=== PATIENT | male | born 1985 | race African-American/Black ===

== ENCOUNTER 2021-02-21 10:49 | Emergency (ER) | payer MEDICAID ==
[~2021-02-21] VITALS: Ht 170.2 cm; Wt 79.4 kg
[2021-02-21 10:50] VITALS: BP 145/71
--- NOTE | 2021-02-21 10:56 | NUR ---
Pt ambulated to ER bed 3 with a steady gait.
--- NOTE | 2021-02-21 10:58 | NUR ---
Dr. Arguello at pt bedside for further evaluation.
[2021-02-21] MEDS ORDERED: predniSONE 20 MG TAB PO ONE (11:00)
[2021-02-21] MEDS ORDERED: ALBUTEROL 0.083% 2.5 MG/3 ML NEBU INH ONE (11:00)
--- NOTE | 2021-02-21 11:01 | NUR ---
35 Y/O MALE BIB FAMILY C/O SOB AND LEFT UPPER BACK PAIN 4/10 DESCRIBES INTERMITTENT AND SHARP X 1DAY. PT STATES HE HAD SOME WHEEZING DURING THE NIGHT AND UNABLE TO SLEEP. LUNGS ARE SYMMETRICAL, EVEN, SOME LABORING NOTED BUT CLEAR THROUGHOUT WHEN AUSCULTATED.PT DENIES N/V, DENIES FEVER/CHILLS. PMH: BRONCHITIS NKA
--- NOTE | 2021-02-21 11:24 | NUR ---
photonics engineering technician at pt bedside.
--- NOTE | 2021-02-21 11:27 | NUR ---
RT at pt bedside for breathing treatment.
--- NOTE | 2021-02-21 12:08 | NUR ---
Collected KEN POLK, walked to lab.
[2021-02-21] MEDS ORDERED: PRED20TA6 PO (12:12)
[2021-02-21] MEDS ORDERED: ALBU0.0912 IH (12:12)
[2021-02-21 12:19] VITALS: BP 145/71
--- NOTE | 2021-02-21 12:20 | NUR ---
Patient discharged with v/s stable. Written and verbal after care instructions given and explained. Patient alert, oriented and verbalized understanding of instructions. Ambulatory with steady gait. All questions addressed prior to discharge. ID band removed. Patient advised to follow up with PMD. Rx of prednisone and albuterol given. Patient educated on indication of medication including possible reaction and side effects. Opportunity to ask questions provided and answered.
== END 2021-02-21 12:20 | disposition home or self-care (01) ==
LOC: MED 10:49
DX: J20.9 Acute bronchitis, unspecified (principal); Z20.822 Contact with and (suspected) exposure to COVID-19
CPT/HCPCS: 71045; 93005; 94640; 99285; J7512; J7613; U0003

== ENCOUNTER 2021-06-21 08:23 | Emergency (ER) | payer MEDICAID ==
[~2021-06-21] VITALS: Ht 172.7 cm; Wt 81.6 kg
[~2021-06-21 08:23] MED LIST: ALBU0.0912 IH; PRED20TA6 PO
[2021-06-21 08:24] VITALS: BP 116/81
--- NOTE | 2021-06-21 08:30 | NUR ---
TENT 4
--- NOTE | 2021-06-21 08:34 | NUR ---
BIB FAMILY C/O SOB, COUGH, RUNNY NOSE, 7/10 RIGHT RIBS, RIGHT UPPER BACK PAIN X 1WEEK. PMH: BRONCHITIS
[2021-06-21] MEDS ORDERED: ALBUTEROL HFA MDI 90 MCG/ACTUATION 8 GM INH ONE (09:10)
--- NOTE | 2021-06-21 10:26 | NUR ---
CIVD RAPID & PCR SWAB DONE.
[2021-06-21] MEDS ORDERED: IBUP-2213 PO (10:34)
[2021-06-21] MEDS ORDERED: ACET-8386 PO (10:34)
[2021-06-21] MEDS ORDERED: PRED20TA5 PO (10:34)
[2021-06-21] MEDS ORDERED: ALBU0.0912 IH (10:34)
--- NOTE | 2021-06-21 10:45 | NUR ---
PT STATED HE GOT BREATHING TREATMENT.
[2021-06-21 10:51] VITALS: BP 116/81
--- NOTE | 2021-06-21 10:51 | NUR ---
Patient discharged with v/s stable. Written and verbal after care instructions given and explained. Patient alert, oriented and verbalized understanding of instructions. Ambulatory with steady gait. All questions addressed prior to discharge. ID band removed. Patient advised to follow up with PMD. Rx of NORCO, MOTRIN, PROVENTIL given. Patient educated on indication of medication including possible reaction and side effects. Opportunity to ask questions provided and answered.
== END 2021-06-21 10:51 | disposition home or self-care (01) ==
LOC: MED 08:23
DX: S22.31XA Fracture of one rib, right side, initial encounter for closed fracture (principal); Z20.822 Contact with and (suspected) exposure to COVID-19; R05 Cough; Z79.899 Other long term (current) drug therapy; X58.XXXA Exposure to other specified factors, initial encounter; Y93.89 Activity, other specified; Y92.89 Other specified places as the place of occurrence of the external cause; Y99.8 Other external cause status
CPT/HCPCS: 71101; 87426; 94664; 99284; U0003

== ENCOUNTER 2021-07-24 07:26 | Emergency (ER) | payer MEDICAID ==
[~2021-07-24] VITALS: Ht 172.7 cm; Wt 81.6 kg
[~2021-07-24 07:26] MED LIST changes: +ACET-8386 PO; +IBUP-2213 PO; +PRED20TA5 PO
[2021-07-24 07:30] VITALS: BP 114/82
[2021-07-24] MEDS ORDERED: ALBU0.0912 IH (07:40)
--- NOTE | 2021-07-24 07:46 | NUR ---
Patient discharged with v/s stable. Written and verbal after care instructions ABOUT CHRONIC BRONCHITIS, MEDICINE REFILL AT THE ED, ELECTRONIC CIGARETTE INFORMATION given and explained. Patient alert, oriented and verbalized understanding of instructions. Ambulatory with steady gait. All questions addressed prior to discharge. ID band removed. Patient advised to follow up with PMD. Rx of ALBUTEROL SULFATE given. Patient educated on indication of medication including possible reaction and side effects. Opportunity to ask questions provided and answered.
== END 2021-07-24 07:45 | disposition home or self-care (01) ==
LOC: MED 07:26
DX: J41.0 Simple chronic bronchitis (principal); Z76.0 Encounter for issue of repeat prescription
CPT/HCPCS: 99281

== ENCOUNTER 2021-09-14 14:13 | Emergency (ER) | payer MEDICAID, SELFPAY ==
[~2021-09-14] VITALS: Ht 172.7 cm; Wt 86.2 kg
[~2021-09-14 14:13] MED LIST changes: -ACET-8386 PO; -IBUP-2213 PO; -PRED20TA5 PO; -PRED20TA6 PO
[2021-09-14 14:21] VITALS: BP 120/74
--- NOTE | 2021-09-14 14:30 | NUR ---
TENT 1. O2SAT 99% AT THIS TIME.
--- NOTE | 2021-09-14 14:40 | NUR ---
Patient being evaluated by DR MCALLISTER at TENT 1.
--- NOTE | 2021-09-14 14:41 | NUR ---
c/o cough, subjective fever, chills, , difficulty breathing, 7/10 mid back pain x yesterday. denies trauma/injury recently. PMH: RIBS FRACTURE s/p coughing 06/21/21, BRONCHITIS 07/24/21
[2021-09-14] MEDS ORDERED: DEXAMETHASONE 4 MG/ML VIAL PO ONE (14:50)
--- NOTE | 2021-09-14 14:53 | NUR ---
PT BROUGHT BACK TO ROOM 10
--- NOTE | 2021-09-14 15:00 | NUR ---
PT BROUGHT TO RADIOLOGY
[2021-09-14] MEDS ORDERED: DEC4 PO (17:22)
[2021-09-14] MEDS ORDERED: ALBU0.0912 INH (17:22)
[2021-09-14 17:48] VITALS: BP 117/81
--- NOTE | 2021-09-14 17:49 | NUR ---
Patient discharged with v/s stable. Written and verbal after care instructions given and explained. Patient alert, oriented and verbalized understanding of instructions. Ambulatory with steady gait. All questions addressed prior to discharge. ID band removed. Patient advised to follow up with PMD. Rx of DECADRON AND ALBUTEROL given. Patient educated on indication of medication including possible reaction and side effects. Opportunity to ask questions provided and answered.
== END 2021-09-14 17:48 | disposition home or self-care (01) ==
LOC: MED 14:13
DX: R05.9 Cough, unspecified (principal); Z71.6 Tobacco abuse counseling; R06.2 Wheezing; Z20.822 Contact with and (suspected) exposure to COVID-19; Z79.899 Other long term (current) drug therapy; Z79.51 Long term (current) use of inhaled steroids
CPT/HCPCS: 71046; 99285; J1100; U0003

== ENCOUNTER 2021-12-19 06:20 | Emergency (ER) | payer MEDICAID, SELFPAY ==
[~2021-12-19] VITALS: Ht 172.7 cm; Wt 81.6 kg
[~2021-12-19 06:20] MED LIST changes: +ALBU0.0912 INH; +DEC4 PO
[2021-12-19 06:33] VITALS: BP 104/69
[2021-12-19] MEDS ORDERED: IBUPROFEN 400 MG TAB PO ONE (06:45)
[2021-12-19] MEDS ORDERED: ACETAMINOPHEN 325 MG TAB PO ONE (06:45)
[2021-12-19] MEDS ORDERED: predniSONE 20 MG TAB PO ONE (06:45)
[2021-12-19] MEDS ORDERED: AZITHROMYCIN 250 MG TAB PO ONE (06:45)
[2021-12-19 07:57] VITALS: BP 104/69
[2021-12-19] MEDS ORDERED: AZIT250T4 PO (08:21)
[2021-12-19] MEDS ORDERED: PRED20TA5 PO (08:21)
[2021-12-19] MEDS ORDERED: BENZ200C4 PO (08:21)
--- NOTE | 2021-12-19 08:35 | NUR ---
Patient discharged with v/s stable. Written and verbal after care instructions given and explained. Patient alert, oriented and verbalized understanding of instructions. Ambulatory with steady gait. All questions addressed prior to discharge. ID band removed. Patient advised to follow up with PMD. Rx of Zithromax, Benzonatate, Prednisone given. Patient educated on indication of medication including possible reaction and side effects. Opportunity to ask questions provided and answered.
== END 2021-12-19 08:35 | disposition home or self-care (01) ==
LOC: MED 06:20
DX: J40 Bronchitis, not specified as acute or chronic (principal); Z20.822 Contact with and (suspected) exposure to COVID-19; F12.90 Cannabis use, unspecified, uncomplicated; Z79.899 Other long term (current) drug therapy; Z71.6 Tobacco abuse counseling
CPT/HCPCS: 36415; 87804; 99284; J7512; U0003

== ENCOUNTER 2022-10-15 11:42 | Emergency (ER) | payer MEDICAID ==
[~2022-10-15] VITALS: Ht 175.3 cm; Wt 79.4 kg
[~2022-10-15 11:42] MED LIST changes: +AZIT250T4 PO; +BENZ200C4 PO; +PRED20TA5 PO
[2022-10-15 11:52] VITALS: BP 123/72
[2022-10-15] MEDS ORDERED: KETOROLAC 15 MG/ML VIAL IM ONE (12:40)
[2022-10-15 13:04] LABS: APPEARANCE,URINE CLEAR (CLEAR); BILIRUBIN,URINE NEGATIVE (NEGATIVE); BLOOD, URINE NEGATIVE (NEGATIVE); COLOR,URINE YELLOW (YELLOW); LEUKOCYTE ESTERASE ,URINE NEGATIVE (NEGATIVE); NITRITE, URINE NEGATIVE (NEGATIVE); UGLUCOSE NEGATIVE (NEGATIVE)
[2022-10-15 14:30] VITALS: BP 123/72
--- NOTE | 2022-10-15 14:31 | NUR ---
Patient discharged with v/s stable. Written and verbal after care instructions given and explained. Patient verbalized understanding. Ambulatory with steady gait. All questions addressed prior to discharge. Advised to follow up with PMD.
== END 2022-10-15 14:31 | disposition home or self-care (01) ==
LOC: MED 11:42
DX: N50.812 Left testicular pain (principal); J45.909 Unspecified asthma, uncomplicated; Z79.899 Other long term (current) drug therapy
CPT/HCPCS: 76870; 81003; 96372; 99284; J1885; Q0092

== ENCOUNTER 2024-03-07 21:12 | Emergency (ER) | payer SELFPAY ==
[~2024-03-07] VITALS: Ht 172.7 cm; Wt 78.5 kg
[2024-03-07 21:20] VITALS: BP 113/73; PULSE 81; RESP 18; TEMP 97.9; O2SAT 96
[2024-03-08 02:17] VITALS: TEMP 97.9
[2024-03-08 02:49] LABS: BASOPHILS # (AUTO) 0.1 K/uL (0.00-0.22); BASOPHILS % (AUTO) 1.1 % (0.0-2.0); EOSINOPHILS # (AUTO) 0.3 K/uL (0-0.4); EOSINOPHILS % (AUTO) 5.7 % (0.0-4.0); HEMATOCRIT 42.8 % (36-52); HEMOGLOBIN 14.6 g/dL (12.0-18.0); LYMPHOCYTES # (AUTO) 2.4 K/uL (2.0-11.5); LYMPHOCYTES % (AUTO) 42.2 % (20.5-51.1); MEAN CORPUSCULAR HEMOGLOBIN 30 pg (27-31); MEAN CORPUSCULAR HGB CONC 34 g/dL (33-37); MEAN CORPUSCULAR VOLUME 88.3 fL (80-94); MONOCYTES # (AUTO) 0.5 K/uL (0.8-1.0); MONOCYTES % (AUTO) 9.3 % (1.7-9.3); NEUTROPHILS # (AUTO) 2.4 K/uL (1.8-7.7); NEUTROPHILS % (AUTO) 41.7 % (42.2-75.2); PLATELET COUNT (AUTO) 284 K/uL (140-450); RED BLOOD CELL COUNT(AUTO) 4.84 MIL/uL (4.20-6.10); RED CELL DISTRIBUTION WIDTH 12.6 % (11.6-13.7); WHITE BLOOD COUNT (AUTO) 5.7 K/uL (4.8-10.8)
[2024-03-08 02:59] LABS: ANION GAP 9.4 (8-16); CALCIUM 8.7 mg/dL (8.5-10.1); CARBON DIOXIDE 29.5 mmol/L (21-32); CREATININE 1.2 mg/dL (0.6-1.3); POTASSIUM 3.9 mmol/L (3.5-5.1)
[2024-03-08] MEDS ORDERED: NAPR-337 PO (03:19)
[2024-03-08 03:31] VITALS: BP 104/59; PULSE 74; RESP 14; O2SAT 98
== END 2024-03-08 03:31 | disposition home or self-care (01) ==
LOC: MED 21:12
DX: R07.9 Chest pain, unspecified (principal); J45.909 Unspecified asthma, uncomplicated; Z79.899 Other long term (current) drug therapy
CPT/HCPCS: 36415; 71045; 80048; 84484; 85025; 93005; 99285